=== PATIENT | female | born 1985 | race Caucasian/White ===

== ENCOUNTER 2016-10-31 11:49 | Emergency (ER) | payer MEDICAID, OTHER ==
[~2016-10-31] VITALS: Ht 165.1 cm; Wt 68.0 kg
[~2016-10-31 11:49] MED LIST: DOCU250C91 PO; FLUV50 PO; LAMO25TA3 PO; LURA120T PO
[2016-10-31 12:30] VITALS: BP 150/99
[2016-10-31] MEDS ORDERED: IBUPROFEN 600 MG TABLET PO ONE (13:00)
== END 2016-10-31 13:08 | disposition home or self-care (01) ==
LOC: EEVIPCON 11:49 → EMS 12:01
DX: F31.9 Bipolar disorder, unspecified (principal); F41.9 Anxiety disorder, unspecified
CPT/HCPCS: 99285

== ENCOUNTER 2018-04-08 15:33 | Inpatient (IN) | payer MEDICAID ==
[~2018-04-08] VITALS: Ht 160 cm; Wt 82.3 kg
[2018-04-08 16:06] VITALS: BP 132/96
[2018-04-08] MEDS: HALOPERIDOL 5 MG TABLET PO PRN (17:29)
[2018-04-08] MEDS: LORazepam 2 MG TABLET PO PRN (17:29)
[2018-04-08 17:34] VITALS: BP 140/94
[2018-04-08] MEDS ORDERED: NICOTINE 14 MG/24 HOUR PATCH TD PRN (19:15)
[2018-04-08] MEDS ORDERED: MAG HYDROX/AL HYDROX/SIMETH ES 30 ML SUSPENSION UDCUP PO PRN (19:15)
[2018-04-08] MEDS ORDERED: ONDANSETRON HCL 4 MG TABLET PO PRN (19:15)
[2018-04-08] MEDS ORDERED: PETROLATUM,WHITE 71 GM JELLY TP PRN (19:15)
[2018-04-08] MEDS ORDERED: CloNIDine HCL 0.1 MG TABLET PO PRN (19:15)
[2018-04-08] MEDS ORDERED: ACETAMINOPHEN 325 MG TABLET PO PRN (19:15)
[2018-04-08] MEDS ORDERED: MAGNESIUM HYDROXIDE SUSPENSION 30 ML UDCUP PO PRN (19:15)
[2018-04-08] MEDS ORDERED: GuaiFENesin/D-METHORPHAN [SUGAR-FREE] 200-20MG/10 ML SYRUP UDCUP PO PRN (19:15)
[2018-04-08] MEDS ORDERED: ALBUTEROL SULFATE HFA 90 MCG/PUFF 8 GM INHALER IH PRN (19:15)
[2018-04-08] MEDS ORDERED: LOPERAMIDE HCL 2 MG CAPSULE PO PRN (19:15)
[2018-04-09 07:54] LABS: BASOPHILS % (AUTO) 0.9 % (0.0-2.0); EOSINOPHILS % (AUTO) 2.7 % (1.0-6.0); HEMATOCRIT 43.8 % (36-46); HEMOGLOBIN 14.8 g/dL (12.0-16.0); LYMPHOCYTES # (AUTO) 3.3 K/uL (1.0-4.8); LYMPHOCYTES % (AUTO) 39.2 % (22.0-44.0); MEAN CORPUSCULAR HEMOGLOBIN 29.6 pg (26.0-34.0); MEAN CORPUSCULAR HGB CONC 33.9 G/dL (31.0-37.0); MEAN CORPUSCULAR VOLUME 87 fL (80-100); MONOCYTES # (AUTO) 0.7 K/uL (0.1-1.0); MONOCYTES % (AUTO) 8.1 % (2.0-9.0); NEUTROPHILS # (AUTO) 4.2 K/uL (1.8-7.7); NEUTROPHILS % (AUTO) 49.1 % (40.0-70.0); PLATELET COUNT (AUTO) 332 K/uL (150-450); RED BLOOD CELL COUNT(AUTO) 5.01 MIL/uL (4.00-5.20); RED CELL DISTRIBUTION WIDTH 14.9 % (11.5-14.5)
[2018-04-09 08:38] VITALS: BP 153/103
[2018-04-09 08:54] LABS: ALANINE AMINOTRANSFERASE 33 U/L (12-78); ALBUMIN 4.1 g/dL (3.4-5.0); ALKALINE PHOSPHATASE 74 U/L (46-116); ANION GAP 6 mmol/L (8-16); ASPARTATE AMINOTRANSFERASE 18 U/L (15-37); BILIRUBIN,TOTAL 1.3 mg/dL (0.1-1.0); CALCIUM, TOTAL 9.1 mg/dL (8.8-10.5); CARBON DIOXIDE 31 mmol/L (22-29); CHLORIDE 99 mmol/L (98-107); CREATININE 0.88 mg/dL (0.60-1.30); FREE T4 (FREE THYROXINE) 0.84 ng/dL (0.76-1.46); GLOMERULAR FILTR. RATE CALC > 60 mL/min (>60); GLUCOSE,RANDOM 92 mg/dL (70-110); HCG,QUANTITATIVE < 1 mIU/mL (0-6); HDL CHOLESTEROL 66 mg/dL (40-60); POTASSIUM 4.4 mmol/L (3.5-5.1); SODIUM SERUM 136 mmol/L (136-145); THYROID STIMULATING HORMONE 0.65 uIU/mL (0.36-3.74); TOTAL PROTEIN, SERUM 7.9 g/dL (6.4-8.2); TRIGLYCERIDES 99 mg/dL (15-150); UREA NITROGEN, BLOOD 11 mg/dL (7-18)
[2018-04-09 09:03] LABS: HEMOGLOBIN A1C 5.3 % (4.5-6.2)
[2018-04-09 09:05] LABS: CHOL/HDL RATIO 2.1 (3.9-5.7); CHOLESTEROL 139 mg/dL (131-200); LDL CHOL (CALC.) 53 mg/dL (0-130)
[2018-04-09 16:32] VITALS: BP 127/78
[2018-04-09] MEDS: HALOPERIDOL 5 MG TABLET PO PRN (16:47)
[2018-04-09] MEDS: LORazepam 2 MG TABLET PO PRN (16:47)
[2018-04-09] MEDS: ZOLPIDEM TARTRATE 10 MG TABLET PO PRN (20:11)
[2018-04-09] MEDS: DOCUSATE SODIUM 100 MG CAPSULE PO PRN (20:16)
[2018-04-09] MEDS ORDERED: QUEtiapine FUMARATE 200 MG TABLET PO SCH (21:00)
[2018-04-10 06:12] VITALS: BP 125/60
[2018-04-10] MEDS: IBUPROFEN 400 MG TABLET PO PRN (10:54)
[2018-04-10] MEDS: LORazepam 2 MG TABLET PO PRN (10:54)
[2018-04-10 16:06] VITALS: BP 123/96
[2018-04-10] MEDS ORDERED: QUEtiapine FUMARATE 300 MG TABLET PO SCH (21:00)
[2018-04-11 00:15] VITALS: BP 124/84
[2018-04-11] MEDS: ZOLPIDEM TARTRATE 10 MG TABLET PO PRN (00:54)
[2018-04-11 08:33] VITALS: BP 122/98
[2018-04-11] MEDS: DOCUSATE SODIUM 100 MG CAPSULE PO PRN (11:11)
[2018-04-11] MEDS: IBUPROFEN 400 MG TABLET PO PRN (11:11)
[2018-04-11] MEDS ORDERED: LURA20TA PO (12:33)
[2018-04-11] MEDS: LORazepam 2 MG TABLET PO PRN ×2 (12:39→16:40)
[2018-04-11 16:21] VITALS: BP 124/89
[2018-04-11] MEDS: QUEtiapine FUMARATE 200 MG TABLET PO SCH (20:49)
[2018-04-12 01:48] VITALS: BP 109/76
[2018-04-12 08:33] VITALS: BP 125/99
[2018-04-12] MEDS: LORazepam 2 MG TABLET PO PRN ×3 (08:38→22:10)
[2018-04-12] MEDS: SERTRALINE HCL 50 MG TABLET PO SCH ×2 (10:23→16:16)
[2018-04-12 16:13] VITALS: BP 125/86
[2018-04-12] MEDS: IBUPROFEN 400 MG TABLET PO PRN (16:22)
[2018-04-12] MEDS: QUEtiapine FUMARATE 200 MG TABLET PO SCH (20:10)
[2018-04-12] MEDS: ZOLPIDEM TARTRATE 10 MG TABLET PO PRN (20:10)
[2018-04-12 20:31] VITALS: BP 118/78
[2018-04-13 02:17] VITALS: BP 132/89
[2018-04-13] MEDS: IBUPROFEN 400 MG TABLET PO PRN (08:13)
[2018-04-13] MEDS: SERTRALINE HCL 50 MG TABLET PO SCH (08:13)
[2018-04-13 08:27] VITALS: BP 116/91
[2018-04-13] MEDS ORDERED: SERT50TA12 PO (10:42)
[2018-04-13] MEDS ORDERED: QUET200T PO (10:42)
== END 2018-04-13 14:55 | disposition home or self-care (01) | DRG 754 ==
LOC: B3A 16:35 → B2S 04-10 15:19
PROVIDERS: ADMIT Psychiatry & Neurology Child & Adolescent Psychiatry; ATTEND Psychiatry & Neurology Child & Adolescent Psychiatry
DX: F32.9 Major depressive disorder, single episode, unspecified (principal); F10.10 Alcohol abuse, uncomplicated; F17.200 Nicotine dependence, unspecified, uncomplicated; F41.9 Anxiety disorder, unspecified; G47.00 Insomnia, unspecified; Z91.5 Personal history of self-harm; Z28.21 Immunization not carried out because of patient refusal; Z71.6 Tobacco abuse counseling
CPT/HCPCS: 83036; 84439; 84443; 90686

== ENCOUNTER 2022-03-07 18:06 | Inpatient (IN) | payer MEDICAID ==
[~2022-03-07] VITALS: Ht 160 cm; Wt 96.2 kg
[~2022-03-07 18:06] MED LIST changes: -DOCU250C91 PO; -FLUV50 PO; -LAMO25TA3 PO; -LURA120T PO; +QUET200T PO; +SERT-158 PO
[2022-03-07 21:11] LABS: GLUCOMETER DEV NAME(LOC) POC.BV
[2022-03-07] MEDS ORDERED: ZOLPIDEM TARTRATE 10 MG TABLET PO PRN (21:30)
[2022-03-07] MEDS ORDERED: HALOPERIDOL 5 MG TABLET PO PRN (21:30)
[2022-03-07 21:45] VITALS: BP 138/89
[2022-03-07] MEDS ORDERED: PNEUMOCOCCAL VACCINE POLYVALENT 0.5 ML VIAL [PPSV23] IM. ONE (22:30)
[2022-03-08] MEDS ORDERED: ALBUTEROL SULFATE HFA 90 MCG/PUFF 8 GM INHALER IH PRN (06:45)
[2022-03-08] MEDS ORDERED: PETROLATUM,WHITE 28 GM JELLY TP PRN (06:45)
[2022-03-08] MEDS ORDERED: OMEPRAZOLE 20 MG CAPSULE PO PRN (06:45)
[2022-03-08] MEDS ORDERED: CloNIDine HCL 0.1 MG TABLET PO PRN (06:45)
[2022-03-08] MEDS ORDERED: ONDANSETRON HCL 4 MG TABLET PO PRN (06:45)
[2022-03-08] MEDS ORDERED: LOPERAMIDE HCL 2 MG CAPSULE PO PRN (06:45)
[2022-03-08] MEDS ORDERED: ACETAMINOPHEN 325 MG TABLET PO PRN (06:45)
[2022-03-08] MEDS ORDERED: DOCUSATE SODIUM 100 MG CAPSULE PO PRN (06:45)
[2022-03-08] MEDS ORDERED: MAG HYDROX/AL HYDROX/SIMETH ES 30 ML SUSPENSION UDCUP PO PRN (06:45)
[2022-03-08] MEDS ORDERED: BACITRACIN 28 GM OINTMENT TP PRN (06:45)
[2022-03-08] MEDS ORDERED: BENZOCAINE/MENTHOL LOZENGE PO PRN (06:45)
[2022-03-08 08:33] VITALS: BP 130/90
[2022-03-08] MEDS: LORazepam 2 MG TABLET PO PRN ×2 (09:38→16:51)
[2022-03-08] MEDS: IBUPROFEN 600 MG TABLET PO PRN (09:39)
[2022-03-08 20:18] VITALS: BP 142/87
[2022-03-09 06:59] LABS: BASOPHILS % (AUTO) 0.6 % (0.0-2.0); EOSINOPHILS % (AUTO) 1.4 % (1.0-6.0); HEMATOCRIT 42.7 % (36-46); HEMOGLOBIN 13.9 g/dL (12.0-16.0); LYMPHOCYTES % (AUTO) 38.8 % (22.0-44.0); MEAN CORPUSCULAR HEMOGLOBIN 29.1 pg (26.0-34.0); MEAN CORPUSCULAR HGB CONC 32.5 G/dL (31.0-37.0); MEAN CORPUSCULAR VOLUME 90 fL (80-100); MONOCYTES # (AUTO) 0.7 K/uL (0.1-1.0); MONOCYTES % (AUTO) 8.4 % (2.0-9.0); NEUTROPHILS % (AUTO) 50.8 % (40.0-70.0); PLATELET COUNT (AUTO) 311 K/uL (150-450); RED BLOOD CELL COUNT(AUTO) 4.77 MIL/uL (4.00-5.20); RED CELL DISTRIBUTION WIDTH 13.9 % (11.5-14.5)
[2022-03-09 07:07] LABS: HEMOGLOBIN A1C 5.7 % (3.8-5.6)
[2022-03-09 07:26] LABS: CHOL/HDL RATIO 3.2 (3.9-5.7); FREE T4 (FREE THYROXINE) 0.99 ng/dL (0.76-1.46); THYROID STIMULATING HORMONE 0.9 uIU/mL (0.36-3.74)
[2022-03-09] MEDS: CHOLECALCIFEROL (VIT D3) 1,000 UNITS [25 MCG] TABLET PO SCH (08:13)
[2022-03-09] MEDS: LORazepam 2 MG TABLET PO PRN ×2 (08:13→20:30)
[2022-03-09] MEDS: LISINOPRIL 10 MG TABLET PO SCH (10:23)
[2022-03-09 13:00] VITALS: BP 129/99
[2022-03-09] MEDS: MAGNESIUM HYDROXIDE SUSPENSION 30 ML UDCUP PO PRN (13:04)
[2022-03-09] MEDS: RisperiDONE 1 MG TABLET PO SCH (17:11)
[2022-03-09 20:22] VITALS: BP 122/88
[2022-03-09] MEDS: IBUPROFEN 600 MG TABLET PO PRN (20:31)
[2022-03-10 08:49] VITALS: BP 139/94
[2022-03-10] MEDS: RisperiDONE 1 MG TABLET PO SCH ×2 (09:35→16:34)
[2022-03-10] MEDS: FluvoxaMINE MALEATE 50 MG TABLET PO SCH (09:35)
[2022-03-10] MEDS: LISINOPRIL 10 MG TABLET PO SCH (09:35)
[2022-03-10] MEDS: CHOLECALCIFEROL (VIT D3) 1,000 UNITS [25 MCG] TABLET PO SCH (09:35)
[2022-03-10 20:33] VITALS: BP 131/96
[2022-03-11 08:55] VITALS: BP 138/90
[2022-03-11] MEDS: FluvoxaMINE MALEATE 50 MG TABLET PO SCH (09:20)
[2022-03-11] MEDS: RisperiDONE 1 MG TABLET PO SCH ×2 (09:20→16:14)
[2022-03-11] MEDS: LISINOPRIL 10 MG TABLET PO SCH (09:20)
[2022-03-11] MEDS: CHOLECALCIFEROL (VIT D3) 1,000 UNITS [25 MCG] TABLET PO SCH (09:20)
[2022-03-11] MEDS: MAGNESIUM HYDROXIDE SUSPENSION 30 ML UDCUP PO PRN (15:39)
[2022-03-11] MEDS: LORazepam 2 MG TABLET PO PRN (15:47)
[2022-03-11 20:05] VITALS: BP 127/89
[2022-03-12 08:45] VITALS: BP 131/83
[2022-03-12] MEDS: FluvoxaMINE MALEATE 50 MG TABLET PO SCH (08:51)
[2022-03-12] MEDS: RisperiDONE 1 MG TABLET PO SCH ×2 (08:52→16:11)
[2022-03-12] MEDS: CHOLECALCIFEROL (VIT D3) 1,000 UNITS [25 MCG] TABLET PO SCH (08:52)
[2022-03-12] MEDS: LISINOPRIL 10 MG TABLET PO SCH (08:52)
[2022-03-12] MEDS: LORazepam 2 MG TABLET PO PRN (09:34)
[2022-03-12 20:13] VITALS: BP 111/83
[2022-03-12] MEDS ORDERED: RISP1TAB98 PO (22:44)
[2022-03-12] MEDS ORDERED: FLUV50 PO (22:44)
[2022-03-13] MEDS ORDERED: LISI-893 PO (07:22)
[2022-03-13] MEDS: RisperiDONE 1 MG TABLET PO SCH (08:33)
[2022-03-13] MEDS: FluvoxaMINE MALEATE 50 MG TABLET PO SCH (08:33)
[2022-03-13] MEDS: CHOLECALCIFEROL (VIT D3) 1,000 UNITS [25 MCG] TABLET PO SCH (08:33)
[2022-03-13] MEDS: LISINOPRIL 10 MG TABLET PO SCH (08:33)
[2022-03-13 11:32] VITALS: BP 110/80
== END 2022-03-13 13:05 | disposition home or self-care (01) | DRG 750 ==
LOC: B2S 21:49
PROVIDERS: ADMIT Psychiatry & Neurology Psychiatry; ATTEND Psychiatry & Neurology Psychiatry
DX: F25.9 Schizoaffective disorder, unspecified (principal); R45.851 Suicidal ideations; F41.9 Anxiety disorder, unspecified; G47.00 Insomnia, unspecified; K21.9 Gastro-esophageal reflux disease without esophagitis; E66.9 Obesity, unspecified; E55.9 Vitamin D deficiency, unspecified; Z20.822 Contact with and (suspected) exposure to COVID-19; R03.0 Elevated blood-pressure reading, without diagnosis of hypertension; Z79.899 Other long term (current) drug therapy; Z68.37 Body mass index [BMI] 37.0-37.9, adult
CPT/HCPCS: 80061; 83036; 84439; 84443; 85025; 90732